=== PATIENT | female | born 2000 | race Caucasian/White ===

== ENCOUNTER → 2022-12-01 08:54 | Outpatient (BNVA) | payer MEDICAID, SELFPAY | PROVIDERS: PCP Pediatrics Adolescent Medicine; Visit Provider Nurse Practitioner Family | DX: R50.9 Fever, unspecified (principal); Z20.822 Contact with and (suspected) exposure to COVID-19 | CPT/HCPCS: 87400; 87426 ==

== ENCOUNTER 2022-12-07 13:20 | Outpatient (CLI) | payer MEDICAID, SELFPAY ==
--- NOTE | 2022-12-07 13:35 | US_ITS ---
WS: [id number] OBSTETRICAL ULTRASOUND COMPLETE HISTORY: MULTIGRAVIDA 2ND TRIMESTER COMPARISON: None available. Single intrauterine gestation in breech presentation. Cervix is Closed and normal length. Cervical length is 5.2 cm. Normal amount of amniotic fluid surrounds the fetus. Placenta: Posterior, no previa or abruption. Placenta grade 0 Heart: 153 BPM. Four chambers are identified. RIGHT and LEFT outflow tracts are unremarkable. Anatomy: Intracranial structures and spine are normal. kidneys, stomach and urinary bladd er are unremarkable. Abdominal wall, three-vessel cord and cord insertion site are normal. 4 extremities are present. profile: Unremarkable. Gender: Male. measurements: BPD = 4.4 cm = 19w2d HC = 17.9 cm = 20w2d AC = 15.1 cm = 20w2d FL = 3.4 cm = 20w5d EFW: 353 g. Biometry is internally concordant. AGA by ultrasound: 20w5d FELIBERTO by ultrasound: 04/21/2023 US/US OB >= 14 weeks fetus [id number] IMPRESSION: 1. Single intrauterine gestation of 20w5d with an FELIBERTO of 04/21/2023. 2. Unremarkable screening survey of anatomy.
== END 2022-12-07 13:21 | disposition home or self-care (01) ==
PROVIDERS: PCP Pediatrics Adolescent Medicine; Visit Provider Family Medicine
DX: Z34.82 Encounter for supervision of other normal pregnancy, second trimester (principal)
CPT/HCPCS: 76805

== ENCOUNTER 2023-01-27 09:20 | Outpatient (CLI) | payer MEDICAID, SELFPAY ==
[2023-01-27 09:20] VITALS: BMI 23.8
[2023-01-27 09:37] VITALS: BP 116/69; PULSE 95
[2023-01-27 10:08] VITALS: RESP 16; TEMP 36.7
== END 2023-01-27 10:32 | disposition home or self-care (01) ==
LOC: OPOB 09:24 → OBGYN 09:25
PROVIDERS: PCP Pediatrics Adolescent Medicine; Visit Provider Family Medicine
DX: O46.90 Antepartum hemorrhage, unspecified, unspecified trimester (principal); Z3A.00 Weeks of gestation of pregnancy not specified
CPT/HCPCS: 99211

== ENCOUNTER 2023-03-17 14:46 | Outpatient (CLI) | payer MEDICAID, SELFPAY ==
[2023-03-17] VITALS (7 sets, daily range): BP systolic 111–139; BP diastolic 66–90; PULSE 102–122; RESP 15; BMI 26.1
[2023-03-17] MEDS: betamethasone susp 6 mg/mL 5 mL 12 MG IM (15:27)
[2023-03-17 15:47] LABS: Basophils % 0.2 %; Eosinophils # 0.1 10^3/uL (0.0-0.8); Eosinophils % 0.4 %; Hemoglobin 11.5 g/dL (11.5-15.3); Lymphocytes # 2.6 10^3/uL (0.8-4.8); Lymphocytes % 14.9 %; Mean Corpuscular HGB Conc 32.9 g/dL (30.0-36.0); Mean Corpuscular Hemoglobin 26.6 pg (28.0-34.0); Mean Platelet Volume 10.5 fL (7.4-10.4); Monocytes # 1.5 10^3/uL (0.2-0.9); Monocytes % 8.5 %; Neutrophils # 12.95 10^3/uL (1.8-7.7); Neutrophils % 74.3 %; Nucleated Red Blood Cells % 0 %; Platelet Count 306 10^3/cmm (130-400); Red Blood Count 4.32 10^6/uL (4.1-5.3); Red Cell Distribution Width 13.1 % (12.1-15.1); White Blood Count 17.4 10^3/uL (4.0-10.0)
--- NOTE | 2023-03-17 16:04 | P.TS_ITS ---
Transfer Summary Providers Date of Admission: March 17, 2023 Date of Discharge/Transfer: 03/17/23 Attending Provider at Admission: Phil Barrera MD Attending Provider at Transfer: Phil Barrera MD Primary Care Provider: Mathew Bronson Jr, MD Transfer Plans: Anticipated date of transfer: 03/17/23 . Receiving Facility: [facility] . Receiving Provider: Dr. Loera . Diagnoses at Discharge Discharge Diagnosis (1) Premature rupture of membranes (PROM) affecting second : Status: Acute (2) 34 weeks gestation of : Status: Acute Reason for Visit Reason for Visit loss of fluid Brief History: This is a 22-year-old G2, P0 that presents at 34 weeks 6 days with concerns of loss of fluid. Hospital Course Hospital Course The patient was found to have grossly positive nitrazine and leakage of clear fluid and pooling within the vaginal vault. Patient was deemed to be premature prematurely rupture of membranes and given the gestational age it was for the benefit of the to be transferred to higher level care. Was given 1 dose of betamethasone and a bolus of IV fluids. Patient was olga approximately every 4 to 5 minutes but not significantly uncomfortable or making cervical change. Physical Exam Const: COMMON NORMALS: no acute distress, healthy appearing, alert and well nourished HENMT: COMMON NORMALS: normocephalic and moist oral mucous membranes HEAD & SCALP: normocephalic Resp: COMMON NORMALS: normal respiratory effort and No retractions Cardio: COMMON NORMALS: regular rate and regular rhythm RATE: regular rate RHYTHM: regular rhythm GI: OTHER: Gravid Extremity: COMMON NORMALS: no clubbing, cyanosis or edema Neuro: COMMON NORMALS: moves all extremities SENSORIUM/ORIENTATION: Yes joan rt Psych: COMMON NORMALS: mental status grossly normal Skin: COMMON NORMALS: no rashes or lesions noted GENERAL SKIN EXAM: no rashes or lesions noted TS Data Studies Completed and Pending Pending at discharge Category Date Time Status Urinalysis and Microscopic Stat Lab 03/17/23 15:19 Ordered Labs from last 24 hours 03/17/23 15:29 WBC 17.4 H RBC 4.32 Hgb 11.5 Hct 35.0 L MCV 81.0 MCH 26.6 L MCHC 32.9 RDW 13.1 Plt Count 306 MPV 10.5 H Neut % (Auto) 74.3 Lymph % (Auto) 14.9 [place] % (Auto) 8.5 Eos % (Auto) 0.4 Baso % (Auto) 0.2 Neut # (Auto) 12.95 H Lymph # (Auto) 2.6 [place] # (Auto) 1.5 H Eos # (Auto) 0.1 Baso # (Auto) 0.0 Nucleated RBC % (auto) 0 Nucleated RBCs # 0.0 Laboratory Last Values WBC 17.4 10^3/uL (4.0-10.0) H 03/17/23 15:29 RBC 4.32 10^6/uL (4.1-5.3) 03/17/23 15:29 Hgb 11.5 g/dL (11.5-15.3) 03/17/23 15:29 Hct 35.0 % (37.0-47.0) L 03/17/23 15:29 MCV 81.0 fl (81-99) 03/17/23 15:29 MCH 26.6 pg (28.0-34.0) L 03/17/23 15:29 MCHC 32.9 g/dL (30.0-36.0) 03/17/23 15:29 RDW 13.1 % (12.1-15.1) 03/17/23 15:29 Plt Count 306 10^3/cmm (130-400) 03/17/23 15:29 MPV 10.5 fL (7.4-10.4) H 03/17/23 15:29 Neut % (Auto) 74.3 % 03/17/23 15:29 Lymph % (Auto) 14.9 % 03/17/23 15:29 [place] % (Auto) 8.5 % 03/17/23 15:29 Eos % (Auto) 0.4 % 03/17/23 15:29 Baso % (Auto) 0.2 % 03/17/23 15:29 Neut # (Auto) 12.95 10^3/uL (1.8-7.7) H 03/17/23 15:29 Lymph # (Auto) 2.6 10^3/uL (0.8-4.8) 03/17/23 15:29 [place] # (Auto) 1.5 10^3/uL (0.2-0.9) H 03/17/23 15:29 Eos # (Auto) 0.1 10^3/uL (0.0-0.8) 03/17/23 15:29 Baso # (Auto) 0.0 10^3/uL (0.0-0.1) 03/17/23 15:29 Nucleated RBC % (auto) 0 % 03/17/23 15:29 Nucleated RBCs # 0.0 /100WBC 03/17/23 15:29 Recent Clincial Data Last Vital Signs Temp 98.0 F 01/27/23 10:08 Pulse 109 H 03/17/23 15:42 Resp 15 03/17/23 15:04 BP 119/72 03/17/23 15:42 Vital Signs Pulse Resp BP 03/17/23 15:42 109 H 119/72 03/17/23 15:23 112 H 134/82 03/17/23 15:04 15 03/17/23 15:02 122 H 139/90 03/17/23 15:04 15 Intake & Output/Weight 03/15/23 03/16/23 03/17/23 03/18/23 06:59 06:59 06:59 06:59 Weight 82.554 kg Vitals Last Vital Signs Temp 98.0 F 01/27/23 10:08 Pulse 109 H 03/17/23 15:42 Resp 15 03/17/23 15:04 BP 119/72 03/17/23 15:42 TS Medications Medications Betamethasone Acet/Betameth SodPhos (Betamethasone Susp 6 Mg/Ml 5 Ml) 12 mg IM Q24H RAJ Stop: 03/18/23 15:31 Last Admin: 03/17/23 15:27 Dose: 12 mg Lactated Ringer's (Lactated Ringers) 1,000 mls @ 999 mls/hr IV .Q1H1M ONE Stop: 03/17/23 17:01 Allergies No Known Allergies Allergy (Verified 12/01/22 08:52) Discharge Plan Discharge Patient Disposition: Xfer Short-Term Hosp Diet: As Directed Activity: Limit activity as instructed Transfer Attestations Time Spent in Transfer Care: greater than 30 min Quality Metrics Clinical Quality Measures [ No reported AMI, CVA or VTE this stay] Coding Level of Care Code Acute Code for Chg Fwd Diagnoses Premature rupture of membranes (PROM) affecting second O42.90 34 weeks gestation of Z3A.34
[2023-03-17] MEDS: lactated ringers 1,000 ML 999 ML IV (16:20)
[2023-03-17] MEDS: ampicillin 2,000 MG in sodium chloride 0.9% (plus) 50 ML 100 MG IV (16:32)
--- NOTE | 2023-03-17 17:00 | PC.NURSE ---
Patient left facility with EMS crew via [facility]. JAZZ PUENTES
[2023-03-17 17:16] LABS: Nitrazine Paper, PH Positive
== END 2023-03-17 17:00 | disposition short-term general hospital (02) ==
LOC: OPOB 14:56 → OBGYN 14:57
PROVIDERS: Absent Provider Family Medicine; PCP Pediatrics Adolescent Medicine; Visit Provider Family Medicine
DX: O42.913 Preterm premature rupture of membranes, unspecified as to length of time between rupture and onset of labor, third trimester (principal); Z3A.34 34 weeks gestation of pregnancy
CPT/HCPCS: 36415; 59025; 83986; 85025; 87081; 96372; 99211; J0290; J0702; J7120

== ENCOUNTER 2024-10-27 16:59 | Outpatient (CLI) | payer SELFPAY ==
[2024-10-27 17:25] LABS: Basophils % 0.2 %; Eosinophils # 0.2 10^3/uL (0.0-0.8); Eosinophils % 2.1 %; Hematocrit 40.2 % (36-47); Lymphocytes # 3.6 10^3/uL (0.8-4.8); Lymphocytes % 38.8 %; Mean Corpuscular HGB Conc 33.1 g/dL (30-55); Mean Corpuscular Hemoglobin 26.2 pg (27-33); Mean Corpuscular Volume 79.3 fl (85-98); Monocytes # 0.7 10^3/uL (0.2-0.9); Monocytes % 7.7 %; Neutrophils # 4.69 10^3/uL (1.8-7.7); Neutrophils % 50.9 %; Nucleated Red Blood Cells % 0 %; Platelet Count 297 10^3/cmm (157-399); Red Blood Count 5.07 10^6/uL (3.85-5.65); Red Cell Distribution Width 13.1 % (12.1-15.1); White Blood Count 9.22 10^3/uL (3.29-11.43)
[2024-10-27 18:00] LABS: Alanine Aminotransferase 16 U/L (0-33); Albumin Level 4.6 g/dL (3.5-5.2); Alkaline Phosphatase 81 U/L (35-105); Anion Gap 18.9 (5-19); Aspartate Amino Transferase 14 U/L (0-32); Blood Urea Nitrogen 8 mg/dL (6-20); Calcium 9.5 mg/dL (8.5-10.5); Carbon Dioxide 25 mmol/L (22-29); Chloride 103 mmol/L (98-107); Globulin 3.3 g/dL (1.3-4.6); Glomerular Filtration Rate 122.8 mL/min (90-130); Glucose 103 mg/dL (65-115); Lactate Dehydrogenase 186 U/L (135-214); Osmolality Calculated 295 mOsm/kg (285-295); Potassium 3.9 mmol/L (3.5-5.1); Sodium 143 mmol/L (136-145); Total Bilirubin 0.3 mg/dL (0.15-1.2); Total Protein 7.9 g/dL (6.6-8.7)
== END 2024-10-27 17:00 | disposition home or self-care (01) ==
PROVIDERS: PCP Pediatrics Adolescent Medicine
DX: D72.820 Lymphocytosis (symptomatic) (principal)
CPT/HCPCS: 36415; 80053; 83615; 85025